=== PATIENT | male | born 1975 | race Caucasian/White ===

== ENCOUNTER 2022-10-17 06:21 | Day surgery (SDC) | payer BC ==
[2022-10-15 16:35] LABS: BASOPHILS # (AUTO) 0.1 X10'3 (0-0.2); BASOPHILS % (AUTO) 0.9 % (0-1); EOSINOPHILS # (AUTO) 0.4 X10'3 (0-0.9); EOSINOPHILS % (AUTO) 4.7 % (0-6); LYMPHOCYTES # (AUTO) 1.5 X10'3 (1.1-4.8); LYMPHOCYTES % (AUTO) 19.8 % (21-51); MEAN CORPUSCULAR HEMOGLOBIN 32.5 PG (27.0-31.0); MEAN CORPUSCULAR HGB CONC 34.2 g/dL (33.0-36.5); MEAN CORPUSCULAR VOLUME 95.1 FL (78-98); MEAN PLATELET VOLUME 8.4 FL (7.4-10.4); MONOCYTES # (AUTO) 0.9 X10'3 (0-0.9); MONOCYTES % (AUTO) 11.4 % (2-12); NEUTROPHILS # (AUTO) 4.8 X10'3 (1.8-7.7); NEUTROPHILS % (AUTO) 63.2 % (42-75); PRE OP HEMOGLOBIN 15.4 g/dL (14.0-17.9); PRE OP PLATELET COUNT 300 X10'3 (140-440); RED BLOOD COUNT 4.74 X10'6 (4.70-6.10); RED CELL DISTRIBUTION WIDTH 13.1 % (11.5-14.5)
[2022-10-15 16:37] LABS: ALBUMIN 4.1 G/DL (3.4-5.0); ALBUMIN/GLOBULIN RATIO 1.3 (1.1-1.5); ALKALINE PHOSPHATASE 81 IU/L (46-116); BLOOD UREA NITROGEN 13 MG/DL (7-18); BUN/CREATININE RATIO 14.1 (10.0-20.0); CALCIUM 9.1 MG/DL (8.5-10.1); CHLORIDE 104 MMOL/L (99-107); CREATININE 0.92 MG/DL (0.60-1.10); PRE OP ALT 37 U/L (30-65); PRE OP ANION GAP 8 (8-16); PRE OP AST 31 U/L (10-37); PRE OP BILIRUB, TOTAL 0.3 MG/DL (0.0-1.0); PRE OP GLUCOSE 93 MG/DL (70-104); PRE OP SODIUM 142 MMOL/L (135-145); TOTAL PROTEIN 7.2 G/DL (6.4-8.2); eGFR 89 ML/MIN
[2022-10-15 17:09] LABS: UA COLLECTION TYPE CLN CATCH MIDSTREAM
[2022-10-15 17:10] LABS: CLARITY,URINE Clear (Clear); COLOR,URINE YELLOW (Yellow); GLUCOSE, URINE NEGATIVE (Neg); KETONES,URINE NEGATIVE (Neg); NITRITES, URINE NEGATIVE (Neg); OCCULT BLOOD,URINE NEGATIVE (Neg); PROTEIN,URINE Negative (Neg); UROBILINOGEN,URINE 0.2 E.U/dL (0.2-1.0)
[2022-10-15 17:11] LABS: LEUKOCYTE ESTERASE ,URINE NEGATIVE (Neg)
[2022-10-17] VITALS (12 sets, daily range): BP systolic 116–156; BP diastolic 73–99
[~2022-10-17] VITALS: Ht 182.9 cm; Wt 107.2 kg
[~2022-10-17 06:21] MED LIST: NO HOME MEDS; cefazolin 2gm/D5W 100mL 100 ML IV ONE; famotidine 20mg tablet PO ONE; ringers solution, lacted 1,000 ML IV SCH
[2022-10-17] MEDS ORDERED: ondansetron/PF 4mg/2ml inj IV PRN ×2 (08:35→11:55)
[2022-10-17] MEDS ORDERED: ringers solution, lacted 1,000 ML IV SCH ×2 (08:35→11:55)
[2022-10-17] MEDS ORDERED: proCHLORperazine 10 MG/2 ml inj IV PRN (08:35)
[2022-10-17] MEDS ORDERED: morphine 2 MG/ML inj. syringe IV PRN ×2 (08:35→11:55)
[2022-10-17] MEDS ORDERED: meperidine/PF 25mg/ml syringe IV PRN ×3 (08:35)
[2022-10-17] MEDS ORDERED: morphine 4 MG/ML inj SYRINge IV PRN ×2 (08:35→11:55)
[2022-10-17] MEDS ORDERED: BUPIVAcaine/PF 5 mg/ml 10ml ONE (10:52)
[2022-10-17] MEDS ORDERED: midazolam 1 mg/ML 2ml injection ONE (10:54)
[2022-10-17] MEDS ORDERED: fentaNYL /PF 50mcg/ml 5ml ampule ONE (10:54)
[2022-10-17] MEDS ORDERED: BUPIVAcaine/PF 2.5 mg/ml (0.25%) 30ml vial ONE (10:55)
[2022-10-17] MEDS ORDERED: neostigmine methylsulfate 1 MG/ML 10ml vial ONE ×2 (10:58→11:15)
[2022-10-17] MEDS ORDERED: sevoflurane 250ml liquid IH ONE (10:58)
[2022-10-17] MEDS ORDERED: glycopyrrolate 0.2mg/ml inj ONE ×2 (10:58→11:17)
[2022-10-17] MEDS ORDERED: dexamethasone sod phosphate 10mg/ml inj ONE (10:58)
[2022-10-17] MEDS ORDERED: furosemide 20 MG/2 ML vial ONE (10:58)
[2022-10-17] MEDS ORDERED: propofol inj 20 ML IV ONE ×2 (11:15)
[2022-10-17] MEDS ORDERED: rocuronium 10mg/ml inj IV ONE ×3 (11:16→12:33)
[2022-10-17] MEDS ORDERED: LIDOcaine 2% (20mg/ml) 5ml vial ONE (11:16)
[2022-10-17] MEDS ORDERED: ondansetron/PF 4mg/2ml inj ONE (11:17)
[2022-10-17] MEDS ORDERED: ePHEDrine 50MG/ML INJ. ONE (11:22)
[2022-10-17] MEDS ORDERED: BUPIVAcaine/PF 2.5 mg/ml (0.25%) 30ml vial IJ ONE (11:36)
[2022-10-17] MEDS ORDERED: labetalol 20mg/4ml (5mg/ml) syringe IV PRN (11:55)
[2022-10-17] MEDS ORDERED: hydrALAZINE 20mg/ml inj. IV PRN (11:55)
[2022-10-17] MEDS ORDERED: fentaNYL/PF 50MCG/1 ML 2ML syringe IV PRN (11:55)
[2022-10-17] MEDS ORDERED: fentaNYL/PF 50MCG/1 ML 2ML syringe ONE (13:03)
[2022-10-17] MEDS ORDERED: ketorolac trometh. 30mg/ml inj. ONE ×2 (13:23)
[2022-10-17] MEDS ORDERED: mupirocin 2% ointment 22GM ONE (13:27)
[2022-10-17] MEDS ORDERED: morphine 10mg/ml inj. ONE ×2 (13:28)
--- NOTE | 2022-10-17 13:40 | NUR ---
Received from OR via BED, accompanied by Anesthesiologist and report given by Anesthesiologist. PATIENT WAKING UP, NO S/S OF PAIN, V/S WNL, SCD ON, 20G TO RUE, ABDOMEN LAP SITE CLEAN W/ NO S/S OF COMPLICATIONS
--- NOTE | 2022-10-17 13:40 | NUR ---
CORRECTION PATIENT C/O PAIN ON ARRIVAL SEE EMAR FOR MEDS GIVEN
[2022-10-17] MEDS: fentaNYL/PF 50MCG/1 ML 2ML syringe IV PRN ×2 (13:42→13:50)
[2022-10-17] MEDS ORDERED: HYDROcodone/acetaminophen 10/325mg tab PO ONE (13:45)
--- NOTE | 2022-10-17 15:10 | NUR ---
PATIENT A&OX4, 10/05 PAIN SEE EMAR, V/S WNL, SCD OFF, 20G TO RUE D/C, ABDOMEN LAP SITE CDI W/ NO S/S OF COMPLICATIONS. PATIENT BLADDER SCANNED FOR 100CC AND WAS ABLE TO VOID AN EQUAL AMOUNT. POST VOID HAS NO URINE IN BLADDER AND WAS EMPTY. PATIENT TO BE D/C HOME AND UNDERSTANDS RISKS INVOLVED IF HE HAS DIFFICULTY WITH URINATION AND DESIRES D/C HOME . I HAVE REVIEWED D/C INSTRUCTIONS WITH PATIENT AND HIS and they have verbalized understanding patient d/c home with all belongings and family gave transport home.
== END 2022-10-17 15:10 | disposition home or self-care (01) ==
LOC: PAS 06:21
PROVIDERS: ATTEND Surgery
DX: K40.90 Unilateral inguinal hernia, without obstruction or gangrene, not specified as recurrent (principal); K40.91 Unilateral inguinal hernia, without obstruction or gangrene, recurrent; K42.9 Umbilical hernia without obstruction or gangrene; Z30.2 Encounter for sterilization; D17.6 Benign lipomatous neoplasm of spermatic cord; F17.210 Nicotine dependence, cigarettes, uncomplicated; Z79.899 Other long term (current) drug therapy; Z98.890 Other specified postprocedural states; Z82.49 Family history of ischemic heart disease and other diseases of the circulatory system
CPT/HCPCS: 36415; 49593; 49650; 49651; 55559; 80053; 81003; 82948; 85025; 93005; C1758; C1781; J0690; J1100; J1885; J1940; J2250; J2274; J2405; J2704; J2710; J3010; J3490; J7030; J7120; S2900; Z7506; Z7508; Z7512; A4215; A4618